=== PATIENT | female | born 1960 | race Caucasian/White ===

== ENCOUNTER 2023-07-27 08:31 | Outpatient (CLI) | payer BC | END 2023-07-27 08:32 | disposition home or self-care (01) | LOC: CSHCT 08:31 | PROVIDERS: ATTEND Otolaryngology Plastic Surgery within the Head & Neck | DX: K11.20 Sialoadenitis, unspecified (principal); M26.643 Arthritis of bilateral temporomandibular joint | CPT/HCPCS: 70491; 82565 ==